=== PATIENT | female | born 1975 | race Native Hawaiian/Other Pacific Islander ===

== ENCOUNTER 2017-06-06 13:04 | Outpatient (CLI) | payer BC | END 2017-06-06 19:20 | disposition home or self-care (01) | LOC: MAMMO 13:04 | DX: Z12.31 Encounter for screening mammogram for malignant neoplasm of breast (principal) ==

== ENCOUNTER 2017-08-14 09:25 | Outpatient (CLI) | payer BC | END 2017-08-14 11:00 | disposition home or self-care (01) | LOC: US 09:25 | DX: M79.604 Pain in right leg (principal) ==

== ENCOUNTER 2018-11-02 10:30 | Outpatient (CLI) | payer BC | END 2018-11-02 20:22 | disposition home or self-care (01) | LOC: MAMMO 10:30 | DX: Z12.31 Encounter for screening mammogram for malignant neoplasm of breast (principal) ==

== ENCOUNTER 2018-12-08 13:25 | Outpatient (CLI) | payer BC | END 2018-12-08 23:03 | disposition home or self-care (01) | LOC: MAMMO 13:25 | DX: Z12.31 Encounter for screening mammogram for malignant neoplasm of breast (principal); N64.59 Other signs and symptoms in breast ==

== ENCOUNTER 2019-07-23 10:24 | Outpatient (CLI) | payer BC | END 2019-07-23 19:44 | disposition home or self-care (01) | LOC: MAMMO 10:24 | DX: N64.59 Other signs and symptoms in breast (principal) ==

== ENCOUNTER 2020-07-11 13:10 | Outpatient (CLI) | payer BC | END 2020-07-11 21:56 | disposition home or self-care (01) | LOC: MAMMO 13:10 | PROVIDERS: ATTEND Internal Medicine | DX: Z12.31 Encounter for screening mammogram for malignant neoplasm of breast (principal) ==

== ENCOUNTER 2021-08-21 12:34 | Outpatient (CLI) | payer BC | END 2021-08-21 18:57 | disposition home or self-care (01) | LOC: MAMMO 12:34 | PROVIDERS: ATTEND Obstetrics & Gynecology | DX: Z12.31 Encounter for screening mammogram for malignant neoplasm of breast (principal) ==

== ENCOUNTER 2021-11-07 10:02 | Outpatient (CLI) | payer BC | END 2021-11-07 18:53 | disposition home or self-care (01) | LOC: MRI 10:02 | PROVIDERS: ATTEND Orthopaedic Surgery | DX: M54.59 Other low back pain (principal) ==

== ENCOUNTER 2022-09-20 10:50 | Outpatient (CLI) | payer BC | END 2022-09-20 20:36 | disposition home or self-care (01) | LOC: MAMMO 10:50 | PROVIDERS: ATTEND Obstetrics & Gynecology | DX: Z12.31 Encounter for screening mammogram for malignant neoplasm of breast (principal) ==